=== PATIENT | male | born 1990 | race Caucasian/White ===

== ENCOUNTER 2020-12-13 16:08 | Emergency (ER) | payer BC ==
[~2020-12-13] VITALS: Ht 170.2 cm; Wt 72.6 kg
[2020-12-13 16:35] VITALS: BP 144/78
[2020-12-13] MEDS ORDERED: LIDOCAINE 2%-EPI 1:100,000 30 ML VIAL ONE (16:54)
--- NOTE | 2020-12-13 17:00 | NUR ---
HEATH DONE BY BERTRAND WARREN. PATIENT A/OX4, IN STABLE CONDITION. AMBULATORY WITH STEADY GAIT.
--- NOTE | 2020-12-13 17:10 | NUR ---
HEAD COVERED WITH DRY DRESSING. Patient discharged to home in stable condition. Written and verbal after care instructions given. Patient verbalizes understanding of instruction.
== END 2020-12-13 17:21 | disposition home or self-care (01) ==
LOC: ER 16:12
DX: S01.01XA Laceration without foreign body of scalp, initial encounter (principal); W22.8XXA Striking against or struck by other objects, initial encounter; Y93.89 Activity, other specified; Y92.89 Other specified places as the place of occurrence of the external cause; Y99.8 Other external cause status
CPT/HCPCS: 12002; 99282; A6403; J3490